=== PATIENT | female | born 1960 | race Two or more races ===

== ENCOUNTER 2021-02-24 10:10 | Emergency (ER) | payer SELFPAY ==
[~2021-02-24] VITALS: Ht 165.1 cm; Wt 77.1 kg
[2021-02-24] MEDS ORDERED: cefTRIAXone SOD 1,000 MG VL IM ONE (13:45)
[2021-02-24 14:00] VITALS: BP 124/76
== END 2021-02-24 14:27 | disposition home or self-care (01) ==
LOC: ER 10:10
DX: L03.011 Cellulitis of right finger (principal)
CPT/HCPCS: 73140; 96372; 99283; J0696

== ENCOUNTER 2023-10-28 17:24 | Inpatient (IN) | payer MEDICAID, OTHER ==
[~2023-10-28] VITALS: Ht 165.1 cm; Wt 80.9 kg
[2023-10-28 17:41] VITALS: PULSE 85; RESP 26; O2SAT 95
[2023-10-28 17:54] LABS: Basophils # (auto) 0 10 ^3/uL (0-0.2); Eosinophils # (auto) 0.1 10 ^3/uL (0-0.8); Monocytes # (auto) 0.5 10 ^3/uL (0-1.3)
[2023-10-28 17:56] LABS: Basophils % (auto) 0.3 % (0.0-2.0); Eosinophils % (auto) 1.2 % (0.0-7.0); Hematocrit 38.7 % (36.0-46.0); Hemoglobin 12.3 g/dL (12.2-16.2); Lymphocytes # (auto) 1.4 10 ^3/uL (0.4-5.4); Lymphocytes % (auto) 12.3 % (10.0-50.0); Mean Corpuscular Hgb Conc. 31.8 g/dL (32.0-36.0); Mean Corpuscular Volume 78.5 fL (80.0-100.0); Monocytes % (auto) 4.9 % (0.0-12.0); Neutrophils % (auto) 81.3 % (37.0-80.0); Nucleated Red Blood Cells % 0.1 %; Red Blood Cells 4.93 10^6/uL (4.0-5.20); Red Cell Distribution Width 18.4 % (11.8-14.3)
[2023-10-28 18:10] LABS: INR 1.02 (0.9-1.15); Partial Thromboplastin Time 26.2 SEC (24.5-34.5); Prothrombin Time 10.8 sec (9.3-11.8)
[2023-10-28 18:31] LABS: Alanine Aminotransferase 13 U/L (7-40); Alkaline Phosphatase 80 U/L (46-116); Anion Gap 14 (5-15); Aspartate Aminotransferase 24 U/L (13-40); BUN/Creatinine Ratio 6.5 (10.0-20.0); Blood Urea Nitrogen 10 mg/dL (9-23); Calcium 9.4 mg/dL (8.7-10.4); Carbon Dioxide 17 mmol/L (20-30); Chloride 105 mmol/L (98-107); Glucose 89 mg/dL (74-106); Magnesium 1.8 mg/dL (1.6-2.6); Potassium 4.2 mmol/L (3.5-5.1); Sodium 136 mmol/L (136-145)
[2023-10-28 18:32] LABS: Bilirubin, Total 0.3 mg/dL (0.2-1.0); Total Protein 7.1 g/dL (5.7-8.2)
[2023-10-28 19:30] VITALS: PULSE 85; RESP 18; O2SAT 97
[2023-10-28] MEDS: ALBUTEROL SULF 2.5 MG/0.5ML(0.5%) NEB SOLN NEB ONE (21:31)
[2023-10-28] MEDS: IPRATROPIUM BROM 0.5 MG/2.5ML INH SOL NEB ONE (21:33)
[2023-10-28] MEDS: ONDANSETRON HCL 4 MG/2 ML VIAL IV ONE (21:51)
[2023-10-28] MEDS: methylPREDNISolone SOD SUCC 125 MG/2 ML VL IV ONE (21:51)
[2023-10-28] MEDS: cefTRIAXone 1GM/50ML D5W 50 ML IV ONE (21:52)
[2023-10-28] MEDS: MORPHINE SULFATE 4 MG/ML SYR/VIAL IV ONE (21:59)
[2023-10-28 22:00] VITALS: BP 118/64; PULSE 64; RESP 18; TEMP 98.4; O2SAT 90
[2023-10-28] MEDS: AZITHROMYCIN 500MG/ 250ML 250 ML IV ONE (22:05)
[2023-10-28 22:35] LABS: Lactic Acid w/Reflex 3.7 mmol/L (0.4-2.0)
[2023-10-28] MEDS ORDERED: ACETAMINOPHEN 325 MG TAB PO PRN (23:00)
[2023-10-28] MEDS ORDERED: TEMAZEPAM 15 MG CAP PO PRN (23:00)
[2023-10-28] MEDS ORDERED: ALBUTEROL SULF 2.5 MG/0.5ML(0.5%) NEB SOLN NEB PRN (23:00)
[2023-10-28] MEDS ORDERED: ONDANSETRON HCL 4 MG/2 ML VIAL IV PRN (23:00)
[2023-10-28] MEDS ORDERED: IPRATROPIUM BROM 0.5 MG/2.5ML INH SOL NEB PRN (23:00)
[2023-10-28 23:22] VITALS: BP 110/76; PULSE 88; RESP 18; TEMP 98.5; O2SAT 98
[2023-10-29] MEDS: HYDROcodone-ACET 5/325MG TAB PO PRN (00:16)
[2023-10-29 01:31] LABS: Rapid Influenza A Negative (Negative); Rapid Influenza B Negative (Negative)
[2023-10-29 01:32] LABS: COVID19 ANTIGEN SOFIA FIA NEGATIVE (NEGATIVE)
[2023-10-29 03:12] VITALS: BP 121/65; PULSE 77; RESP 20; TEMP 97.8; O2SAT 95
[2023-10-29 03:13] LABS: Basophils # (auto) 0 10 ^3/uL (0-0.2); Basophils % (auto) 0.1 % (0.0-2.0); Eosinophils # (auto) 0 10 ^3/uL (0-0.8); Lymphocytes # (auto) 0.4 10 ^3/uL (0.4-5.4); Mean Corpuscular Hemoglobin 25.6 pg (28.0-32.0); Mean Corpuscular Hgb Conc. 32.2 g/dL (32.0-36.0); Monocytes # (auto) 0.1 10 ^3/uL (0-1.3); Neutrophils # (auto) 5.7 10 ^3/uL (1.6-8.6)
[2023-10-29 03:15] LABS: Eosinophils % (auto) 0.1 % (0.0-7.0); Hematocrit 37.2 % (36.0-46.0); Lymphocytes % (auto) 5.8 % (10.0-50.0); Mean Corpuscular Volume 79.7 fL (80.0-100.0); Monocytes % (auto) 1.7 % (0.0-12.0); Neutrophils % (auto) 92.3 % (37.0-80.0); Red Blood Cells 4.66 10^6/uL (4.0-5.20); Red Cell Distribution Width 18.1 % (11.8-14.3); White Blood Cell 6.2 10^3/uL (4.4-10.8)
[2023-10-29 03:23] LABS: Chloride 102 mmol/L (98-107); Sodium 134 mmol/L (136-145)
[2023-10-29 03:24] LABS: Anion Gap 9 (5-15); Carbon Dioxide 23 mmol/L (20-30)
[2023-10-29 03:25] LABS: Calcium 9.1 mg/dL (8.7-10.4)
[2023-10-29 03:30] LABS: BUN/Creatinine Ratio 10.7 (10.0-20.0); Blood Urea Nitrogen 13 mg/dL (9-23); Glucose 167 mg/dL (74-106)
[2023-10-29] MEDS ORDERED: POTA-36 PO (04:10)
[2023-10-29 05:00] VITALS: BP 121/65; PULSE 77; RESP 20; TEMP 97.8; O2SAT 94
[2023-10-29 09:00] VITALS: BP 120/66; PULSE 86; RESP 18; TEMP 97.8; O2SAT 90
[2023-10-29] MEDS: cefTRIAXone 1GM/50ML D5W 50 ML IV SCH (09:36)
[2023-10-29] MEDS ORDERED: ENOXAPARIN SOD 30 MG/0.3 ML SYRINGE SC SCH (10:00)
[2023-10-29] MEDS: ENOXAPARIN SOD 40 MG/0.4 ML SYRINGE SC SCH (10:18)
[2023-10-29] MEDS: AZITHROMYCIN 500MG/ 250ML 250 ML IV SCH (10:18)
[2023-10-29 13:00] VITALS: BP 111/60; PULSE 77; RESP 20; TEMP 98.3; O2SAT 90
[2023-10-29] MEDS: SODIUM CHLORIDE 0.9% 1,000 ML IV ONE (13:20)
[2023-10-29 16:10] LABS: Lactic Acid w/Reflex 3.7 mmol/L (0.4-2.0)
[2023-10-29 17:00] VITALS: BP 99/72; PULSE 95; RESP 16; TEMP 98.2; O2SAT 96
[2023-10-29 21:00] VITALS: BP 108/53; PULSE 92; RESP 16; TEMP 97.8; O2SAT 91
[2023-10-30] VITALS (7 sets, daily range): BP systolic 99–126; BP diastolic 49–74; PULSE 72–86; RESP 14–18; TEMP 36.7; O2SAT 93–98
[2023-10-30 07:08] LABS: Alanine Aminotransferase 13 U/L (7-40); Albumin 3.7 g/dL (3.2-4.8); Alkaline Phosphatase 63 U/L (46-116); Anion Gap 7 (5-15); Aspartate Aminotransferase 16 U/L (13-40); BUN/Creatinine Ratio 18.6 (10.0-20.0); Blood Urea Nitrogen 16 mg/dL (9-23); Calcium 9.1 mg/dL (8.7-10.4); Carbon Dioxide 26 mmol/L (20-30); Chloride 108 mmol/L (98-107); Glucose 93 mg/dL (74-106); Potassium 4.2 mmol/L (3.5-5.1); Sodium 141 mmol/L (136-145)
[2023-10-30 07:09] LABS: Bilirubin, Total 0.3 mg/dL (0.2-1.0); Total Protein 6.4 g/dL (5.7-8.2)
[2023-10-30 07:22] LABS: Basophils # (auto) 0 10 ^3/uL (0-0.2); Basophils % (auto) 0.4 % (0.0-2.0); Eosinophils # (auto) 0 10 ^3/uL (0-0.8); Mean Corpuscular Volume 79.9 fL (80.0-100.0); Monocytes # (auto) 0.4 10 ^3/uL (0-1.3); Monocytes % (auto) 5.6 % (0.0-12.0); Neutrophils # (auto) 4.4 10 ^3/uL (1.6-8.6); Red Cell Distribution Width 18.1 % (11.8-14.3)
[2023-10-30 07:24] LABS: Eosinophils % (auto) 0.5 % (0.0-7.0); Hematocrit 34.3 % (36.0-46.0); Hemoglobin 11.2 g/dL (12.2-16.2); Lymphocytes # (auto) 1.6 10 ^3/uL (0.4-5.4); Lymphocytes % (auto) 24.9 % (10.0-50.0); Mean Corpuscular Hemoglobin 26.1 pg (28.0-32.0); Mean Corpuscular Hgb Conc. 32.7 g/dL (32.0-36.0); Neutrophils % (auto) 68.6 % (37.0-80.0); White Blood Cell 6.5 10^3/uL (4.4-10.8)
[2023-10-30 11:42] LABS: Lactic Acid w/Reflex 2.6 mmol/L (0.4-2.0)
[2023-10-30] MEDS ORDERED: methylPREDNISolone SOD SUCC 40 MG/ML VL IM STA (12:55)
[2023-10-30] MEDS ORDERED: SODIUM CHLORIDE 0.9% 1,000 ML IV SCH (13:00)
[2023-10-30] MEDS ORDERED: AZITTAB PO (16:53)
[2023-10-30] MEDS ORDERED: CEFP200T15 PO (16:53)
[2023-10-30] MEDS ORDERED: PRED20TA2 PO (16:53)
[2023-10-30] MEDS ORDERED: methylPREDNISolone SOD SUCC 40 MG/ML VL IV SCH (22:00)
== END 2023-10-30 19:00 | disposition home or self-care (01) | DRG 720 ==
LOC: ER 17:24 → EDUNIT# 17:24 → EDBD 17:24 → OVERFLOW 22:53 → WEST WING 10-29 03:35
PROVIDERS: ADMIT Internal Medicine Pulmonary Disease; ATTEND Internal Medicine Pulmonary Disease
DX: A41.9 Sepsis, unspecified organism (principal); N17.0 Acute kidney failure with tubular necrosis; J18.9 Pneumonia, unspecified organism; I13.0 Hypertensive heart and chronic kidney disease with heart failure and stage 1 through stage 4 chronic kidney disease, or unspecified chronic kidney disease; J44.0 Chronic obstructive pulmonary disease with (acute) lower respiratory infection; E87.1 Hypo-osmolality and hyponatremia; I50.9 Heart failure, unspecified; N18.30 Chronic kidney disease, stage 3 unspecified; Z20.822 Contact with and (suspected) exposure to COVID-19; J44.1 Chronic obstructive pulmonary disease with (acute) exacerbation; Z90.49 Acquired absence of other specified parts of digestive tract; Z98.84 Bariatric surgery status; R06.03 Acute respiratory distress
CPT/HCPCS: 36415; 71045; 74176; 80048; 80053; 83605; 83735; 83880; 84484; 85025; 85379; 85610; 85730; 87040; 87426; 87804; 93005; 93970; 94640; 96365; 96375; G0378; J2405